=== PATIENT | female | born 1965 | race Caucasian/White ===

== ENCOUNTER → 2016-09-18 | Outpatient (CLI) | payer OTHER ==
--- NOTE | ~2016-09-18 | MY7 ---
[facility] A Service of [facility] & [facility] RADIOLOGY TEXT RESULTS PATIENT: AGATA ALVES LOCATION: [facility] : 63 UNIT #: [id number] AGE: [address]: Bartolo Cronin MD SEX: F ORDER DR: [id number] [facility] [address] [place], [place] [address] [id number] O MR#: [id number] Acc #: [id number] NAME: AGATA ALVES : 1965 SEX: F STUDY DATE/TIME: 09/18/2016 8:21 UNIT: [facility] ROOM: STUDY DESCRIPTION: MY Mammogram Dx Dig Lt Attending Physician: Bartolo Cronin M.D. Referring Physician: Bartolo Cronin M.D. Ordering Physician: Bartolo Cronin M.D. Primary Care Physician: Marleen López A.P.R.N. MEDICAL IMAGING REPORT This report is preliminary unless electronic signature is present EXAM Diagnostic left mammogram INDICATIONS Left breast tenderness and possible lump lateral left breast. COMPARISON 01/31/2016 02/18/2014 02/10/2013. FINDINGS Today's study includes MLO and CC and ML digital views of the left breast. A marker was placed where patient has tenderness. Patient cannot feel a lump. There is a small amount of glandular tissue in the anterior breast behind the nipple. The rest of the breast is fatty. There has been no change. IMPRESSION The diagnostic mammogram is negative and the prior posterior three-quarters of breast is fatty and there is no evidence of mass or abnormality where the patient indicates some tenderness. Therefore, I did not feel ultrasound was necessary. Routine mammographic screening in January 2017 is recommended for both breasts. Patients over the age of 40 are entered into a reminder system with target due date for the next mammogram. A result letter will also be sent to the patient. BIRADS: 1 Negative. Dictated by... Chucky Johnson M.D. THIS IS AN ELECTRONICALLY VERIFIED REPORT Chucky Johnson M.D. at 09/18/2016 11:59 AM [facility] A Service of [facility] & [facility] RADIOLOGY TEXT RESULTS PATIENT: AGATA ALVES LOCATION: [facility] : 63 UNIT #: [id number] AGE: [address]: Bartolo Cronin MD SEX: F ORDER DR: Yina TD: 09/18/2016 11:37 JOB #: [id number] MEDICAL IMAGING REPORT COPY
== END | disposition home or self-care (01) ==
LOC: CMAM 07:50
DX: N63 Unspecified lump in breast (principal)
CPT/HCPCS: G0206

== ENCOUNTER → 2016-10-07 | Outpatient (CLI) | payer OTHER ==
--- NOTE | ~2016-10-07 | CT4 ---
[facility] A Service of [facility] & [facility] RADIOLOGY TEXT RESULTS PATIENT: AGATA ALVES [facility] : 63 UNIT #: [id number] AGE: [address]: Marleen López APRN SEX: F ORDER DR: [id number] [facility] [address] [place], [place] [address] [id number] O MR#: [id number] Acc #: [id number] NAME: AGATA ALVES : 1965 SEX: F STUDY DATE/TIME: 10/07/2016 15:33 UNIT: [facility] ROOM: STUDY DESCRIPTION: CT Abd and Pelv Wo Cont Attending Physician: Marleen López A.P.R.N. Referring Physician: Marleen López A.P.R.N. Ordering Physician: Marleen López A.P.R.N. Primary Care Physician: Marleen López A.P.R.N. MEDICAL IMAGING REPORT This report is preliminary unless electronic signature is present EXAM CT abdomen and pelvis, 10/07 INDICATIONS Left lower quadrant pain and tenderness for the last 2-3 days. TECHNIQUE Axial images were obtained through the abdomen and pelvis without contrast. Multiplanar reformats were obtained. No comparison. This CT exam was performed with one or more of the following radiation dose reduction techniques: Automatic exposure control, adjustment of mA and/or kV according to patient size, and iterative reconstruction. FINDINGS ABDOMEN: Lung bases are clear. Gallbladder is unremarkable. Multiple nonobstructing stones are noted in the lower pole of the left kidney. The largest measures about 5 mm in size. No ureteral stones are seen on either side and there is no hydronephrosis. Low-density lesions in the left kidney are likely cysts. Non-emergent renal ultrasound is recommended to confirm. The unenhanced solid organs are otherwise normal. The unopacified GI tract is normal. PELVIS: There are no lower ureteral stones. The bladder is normal. The solid pelvic organs are normal. There is focal diverticulitis involving the proximal sigmoid colon. No abscess is seen. The remainder of the unopacified GI tract, including the appendix, is normal. IMPRESSION 1. Mild, uncomplicated, acute proximal sigmoid diverticulitis. Remainder of the GI tract is normal. 2. Nonobstructing stones in the left kidney. No ureteral stones and no hydronephrosis. [facility] A Service of [facility] RADIOLOGY TEXT RESULTS PATIENT: AGATA ALVES LOCATION: [facility] : 63 UNIT #: [id number] AGE: [address]: Marleen López APRN SEX: F ORDER DR: 3. Low-density lesions in the left kidney which are probably cysts. Non-emergent renal ultrasound is recommended to confirm. Dictated by... Prateek Joseph Jr., M.D. THIS IS AN ELECTRONICALLY VERIFIED REPORT Prateek Joseph Jr., M.D. at 10/08/2016 9:49 AM ANSON/robert TD: 10/07/2016 22:26 JOB #: [id number] MEDICAL IMAGING REPORT Page 1 of 1 COPY
== END | disposition home or self-care (01) ==
LOC: CCAT 14:47
DX: R10.32 Left lower quadrant pain (principal); K57.92 Diverticulitis of intestine, part unspecified, without perforation or abscess without bleeding; N20.0 Calculus of kidney; N28.89 Other specified disorders of kidney and ureter
CPT/HCPCS: 74176